=== PATIENT | male | born 1975 | race Caucasian/White ===

== ENCOUNTER 2017-10-13 20:08 | Emergency (ER) | payer SELFPAY ==
[~2017-10-13] VITALS: Ht 180.3 cm; Wt 145.1 kg
[2017-10-13 20:11] VITALS: BP 140/100
--- NOTE | 2017-10-13 20:15 | NUR ---
PATIENT PRESENTS TO ED WITH NONPRODUCTIVE COUGH, NASAL CONGESTION, FOR 3 WEEKS, HX OF ASTHMA. DENIES N/V/D; SKIN IS PINK/WARM/DRY; AAOX4 WITH EVEN AND STEADY GAIT; RHONCHI LUNG SOUND BL; HR EVEN AND REGULAR; PT DENIES ANY FEVER, CP AT THIS TIME; DENIES PAIN; VSS; ER MD MADE AWARE OF PT STATUS.
--- NOTE | 2017-10-13 20:20 | NUR ---
PT IS SEEN BY DR. JOSHUA.
[2017-10-13 20:25] VITALS: BP 138/90
--- NOTE | 2017-10-13 20:25 | NUR ---
Patient discharged with v/s stable. Written and verbal after care instructions given and explained BY DR. JOSHUA. Patient alert, oriented and verbalized understanding of instructions. Ambulatory with steady gait. All questions addressed prior to discharge. ID band removed. Patient advised to follow up with PMD. Rx of PROMETHAZINE DM, BIAXIN FILMTAB given. Patient educated on indication of medication including possible reaction and side effects. Opportunity to ask questions provided and answered.
== END 2017-10-13 20:25 | disposition home or self-care (01) ==
LOC: MED 20:08
DX: J20.9 Acute bronchitis, unspecified (principal); J45.909 Unspecified asthma, uncomplicated; Z88.0 Allergy status to penicillin
CPT/HCPCS: 99283

== ENCOUNTER 2018-09-10 21:34 | Emergency (ER) | payer SELFPAY ==
[~2018-09-10] VITALS: Ht 177.8 cm; Wt 147.4 kg
[2018-09-10 21:46] VITALS: BP 210/115
--- NOTE | 2018-09-10 21:46 | NUR ---
TO BED # 5 AMB, REPORT GIVEN TO ADRIANA RN, NASAL SWAB DONE
--- NOTE | 2018-09-10 22:03 | NUR ---
PT PRESENTS TO ED WITH C/O GENERALIZED BODY ACHES AND SOB WITH PRODUCTIVE COUGH. INSPIRATORY AND EXPIRATORY WHEEZES HEARD BILATERALLY UPON ASCULTATION. PT DENIES N/V AT THIS TIME. PT PLACED INTO BED, PENDING MD WHITAKER. NO S/S OF DISTRESS NOTED AT THIS TIME. PMH--HTN RX--NONE
--- NOTE | 2018-09-10 22:33 | NUR ---
Dr. Gonzalez evaluating patient at bedside.
[2018-09-10] MEDS ORDERED: ALBUTEROL SULFATE/IPRATROPIU 3 ML SOL IH ONE ×2 (22:40→23:05)
--- NOTE | 2018-09-10 22:43 | NUR ---
Respiratory Therapist at bedside for respiratory intervention.
[2018-09-10] MEDS ORDERED: KETOROLAC 30 MG/ML VIAL IM ONE (22:50)
--- NOTE | 2018-09-10 22:52 | NUR ---
X-Ray at bedside.
[2018-09-10] MEDS ORDERED: PHENYLEPHRINE 0.5% 15 ML BTL NS ONE (23:05)
--- NOTE | 2018-09-10 23:39 | NUR ---
Patient discharged with v/s stable. Written and verbal after care instructions given and explained. Patient alert, oriented and verbalized understanding of instructions. Ambulatory with steady gait. All questions addressed prior to discharge. ID band removed. Patient advised to follow up with PMD. Rx of NAPROSYN, ROBITUSSIN, SUDAFED, AZITHROMYCIN, ALBUTEROL given. Patient educated on indication of medication including possible reaction and side effects. Opportunity to ask questions provided and answered.
[2018-09-10 23:41] VITALS: BP 180/86
== END 2018-09-10 23:39 | disposition home or self-care (01) ==
LOC: MED 21:34
DX: J20.9 Acute bronchitis, unspecified (principal); Z98.890 Other specified postprocedural states; Z88.0 Allergy status to penicillin
CPT/HCPCS: 36415; 71045; 87804; 94640; 96372; 99284; J1885; J7620